=== PATIENT | male | born 1955 | race Two or more races ===

== ENCOUNTER 2024-09-06 14:51 | Emergency (ER) | payer OTHER ==
[~2024-09-06] VITALS: Ht 182.9 cm; Wt 82.8 kg
[2024-09-06 15:52] VITALS: BP 105/60; PULSE 102; RESP 22; TEMP 99.8; O2SAT 93
--- NOTE | 2024-09-06 16:25 | DVH ---
CHEST RADIOGRAPH Indication: Cough Technique: Single frontal view of the chest was obtained Comparison: None FINDINGS: Lines and Tubes: None Lungs: No focal consolidation. Pleura: No effusion.No pneumothorax. Cardiomediastinal contours: Unremarkable Pulmonary vasculature: Within normal limits. Bones: No acute osseous abnormality. IMPRESSION: 1. No acute cardiopulmonary disease. HS:Y
== END 2024-09-07 00:31 | disposition left against medical advice (07) ==
LOC: ER 14:51
DX: R05.9 Cough, unspecified (principal); R50.9 Fever, unspecified
CPT/HCPCS: 71045